=== PATIENT | male | born 1970 | race Caucasian/White ===

== ENCOUNTER 2018-06-28 16:49 | Inpatient (IN) ==
[2018-06-28 17:55] LABS: EOS# 0.03 X1000 (0.0-0.7); EOS% 0.5 % (0.0-10.0); HEMATOCRIT 43.2 % (42.0-52.0); HEMOGLOBIN 14.6 g/dL (14.0-18.0); IMM GRAN# 0.03 X1000 (0.0-0.04); IMM GRAN% 0.5 % (0.0-0.5); LYMPH# 0.96 X1000 (1.2-3.4); LYMPH% 16.6 % (20.5-51.1); MCH 31.9 PG (27-31); MCHC 33.8 g/dL (33-37); MCV 94.5 FL (81-99); MONO% 10.4 % (1.7-9.3); MPV 10.6 FL (7.4-10.4); NEUT# 4.16 X1000 (1.4-6.5); PLT 106 X1000 (130-400); RBC 4.57 XMIL (4.7-6.1); RDW 18.2 % (11.5-14.5); WBC 5.78 X1000 (4.8-10.8)
--- NOTE | 2018-06-28 17:57 | Diag Imaging Result Doc PS360 ---
EXAM: CHEST-PORTABLE - 06/28/2018 HISTORY: chf TECHNIQUE: Portable chest COMPARISON: 12/05/2017 FINDINGS: Heart size appears mildly enlarged. There is mild prominence of central vascular markings. There is no consolidation, pleural effusion, or pneumothorax identified. IMPRESSION: Mild cardiomegaly, with possible mild central vascular congestion. Electronically signed by Fran Fulton 06/28/2018 5:55 PM
[2018-06-28 18:00] LABS: INR 1.49; PROTIME 19.1 Seconds (11.0-16.0); PTT 31.4 Seconds (22.3-41.8)
[2018-06-28 18:07] LABS: ESTIMATED GFR > 60
[2018-06-28 18:08] LABS: AGAP 11; ALB/GLOB RATIO 1.8; ALBUMIN 3.5 g/dL (3.5-5.0); ALKALINE PHOSPHATASE 278 U/L (32-122); BUN 68 mg/dL (8-22); CALCIUM 7.9 mg/dL (8.8-10.2); CHLORIDE 99 mmol/L (98-107); COSMO 286; CREATININE 1.2 mg/dL (0.7-1.2); GLUCOSE 188 mg/dL (70-104); GOT 163 U/L (10-34); GPT 335 U/L (10-44); POTASSIUM 5.8 mmol/L (3.5-5.1); SODIUM 130 mmol/L (136-145); TCO2 20 mmol/L (25-35); TOTAL BILIRUBIN 1.96 mg/dL (0.20-1.00); TOTAL PROTEIN 5.5 g/dL (6.3-8.3)
[2018-06-28 18:09] LABS: ACETONE SERUM NEGATIVE (NEGATIVE)
[2018-06-28] MEDS ORDERED: HEPARIN IV ONE (18:46)
[2018-06-28] MEDS ORDERED: LANOXIN IV ONE (18:48)
[2018-06-28] MEDS ORDERED: HEPARIN 25,000 UNITS/D5W 25,000 UNIT/250 ML IV.SOLN IV SCH (19:00)
[2018-06-28] MEDS ORDERED: ZOFRAN IV PRN (21:28)
[2018-06-28] MEDS ORDERED: CARDIZEM IV ONE (21:32)
[2018-06-28] MEDS ORDERED: KAYEXALATE PO ONE (21:41)
[2018-06-28 22:05] LABS: HEMOGLOBIN A1C 6.8 % (4.8-6.0)
[2018-06-28] MEDS: CARDIZEM 125 MG in NS 100 ML IV SCH (22:11)
--- NOTE | 2018-06-28 22:23 | HISTORY AND PHYSICAL ---
PRIMARY ONCOLOGIST: Hugo Riggs MD CHIEF COMPLAINT: Possible left ventricle thrombosis. HISTORY OF PRESENT ILLNESS: This is a 48-year-old male with history of leukemia, unknown what type of leukemia he has, currently under chemotherapy, and also diabetes. The patient was seen this morning at [facility] by Dr. Riggs. He had a CAT scan yesterday done and the report apparently said that he may have a left ventricle thrombosis. Clinically the patient reports that during the last couple weeks he was feeling more tired with some chest pressure, but not truly chest pain. No fever or chills. The patient reports no palpitations as well. Here in the ER he has been started on heparin drip. Also, he was noted to be in atrial fibrillation with RVR, so digoxin has been provided to him. Upon my examination, I did not have any report from the CAT scan that he had 2 days ago. We are going to admit him for further evaluation and treatment. PAST MEDICAL HISTORY: 1. Leukemia. The patient is under the care of Dr. Riggs and receiving active chemotherapy. 2. Diabetes mellitus type 2. PAST SURGICAL HISTORY: None. ALLERGIES: None. SOCIAL HISTORY: He denies drinking alcohol. He smokes tobacco, few cigarettes per day occasionally, and he denies any illicit drugs. FAMILY HISTORY: Positive for alcohol consumption and also lung cancer in brother. REVIEW OF SYSTEMS: Eleven systems were reviewed and all symptoms are related to H and P. PHYSICAL EXAMINATION: VITAL SIGNS: Temperature 98.2 degrees, heart rate 129, respiratory rate 24, blood pressure 108/82, O2 saturation 95% on room air. GENERAL: This is a chronically ill-appearing and disheveled 48-year-old male, lying in bed in no acute distress. HEENT: Head is normocephalic and atraumatic. Pupils equal, round and reactive to light and accommodation. Mucous membranes moist. NECK: No JVD noted. No carotid bruits. No lymphadenopathy. No thyromegaly. CARDIOVASCULAR: S1, S2 heard. Irregularly irregular and tachycardic. No gallops or rubs noted. RESPIRATORY: Clear bilaterally to auscultation. Decreased breath sounds globally. The patient is not using any accessory muscles or having work of breathing. ABDOMEN: Soft, nontender to palpation. Bowel sounds present. No organomegaly. EXTREMITIES: No clubbing, cyanosis or edema. Peripheral pulses present in both legs. NEUROLOGICAL: The patient is alert and oriented x3. Moves all 4 extremities. LABORATORY DATA: White cell count 5.78, hemoglobin 14.6, hematocrit 43.2, platelets 106,000. INR 1.49, PT 19.1, PTT 31.4. Sodium 130, potassium 5.8, creatinine 1.2, glucose 188. Magnesium 3.0. Total bilirubin 1.96, AST 163, ALT 335. ProBNP 11,767. Total protein 5.5. ASSESSMENT: 1. Possible left ventricle thrombus. 2. Atrial fibrillation with rapid ventricular rate. 3. Hyperkalemia. 4. Acute leukemia, under treatment. 5. Diabetes mellitus type 2. PLAN: 1. Left ventricle thrombus. The patient has been started in the ER with heparin drip. We are going to continue with the same management. We have seen that platelets are low. I am not quite sure how they are going to be with heparin. If that continues to drop, we may need to start Arixtra. We will monitor CBC daily. We will monitor for any signs of bleeding. Will order echocardiogram to confirm thrombus. 2. Atrial fibrillation with rapid ventricular response. I think this could be secondary to this left ventricle clot. We are going to check an echocardiogram tomorrow. We are going to start this patient on Cardizem drip. We will monitor this patient closely in the [facility]. We are going to check troponins to check any heart strain. 3. Diabetes mellitus type 2. We will check hemoglobin A1c. We will place this patient on sliding scale insulin, Humalog and we will do Accu-Chek before meals and also at bedtime. 4. Hyperkalemia we are going to provide one dose of Kayexalate and check BMP tomorrow. 5. Transaminitis. I do not know if that is another reaction from chemotherapy. The patient denies any alcohol consumption. We are going to check a hepatitis panel and we will monitor hepatic function panel daily. Further recommendations to follow according to the clinical situation of the patient. cc: Terry Hargrove MD [facility]
[2018-06-28 22:57] LABS: URINE SOURCE CLEAN CATCH
[2018-06-28] MEDS ORDERED: TYLENOL PO PRN (23:08)
[2018-06-28 23:23] LABS: BILIRUBIN URINE NEGATIVE (NEGATIVE); BLOOD URINE NEGATIVE (NEGATIVE); COLOR YELLOW; GLUCOSE URINE NEGATIVE (NEGATIVE); KETONE URINE NEGATIVE (NEGATIVE); LEUKOCYTES URINE NEGATIVE (NEGATIVE); NITRITE URINE NEGATIVE (NEGATIVE); PROTEIN URINE NEGATIVE (NEGATIVE); SP GRAVITY URINE 1.018; TURBIDITY URINE CLEAR (CLEAR); UR EPITHELIAL CELLS <10 /HPF (<10); URINE BACTERIA NEGATIVE /HPF; URINE RBC <10 /HPF (<10); URINE WBC <10 /HPF (<10); UROBILINOGEN URINE 2 mg/dL (NORMAL)
[2018-06-28] MEDS: NS 1,000 ML IV SCH (23:43)
[2018-06-29] MEDS: NS 1,000 ML IV SCH (00:28)
[2018-06-29] MEDS ORDERED: HEPARIN 25,000 UNITS/D5W 25,000 UNIT/250 ML IV.SOLN IV SCH ×2 (02:41→10:41)
[2018-06-29 05:51] LABS: BASO# 0.01 X1000 (0.0-0.2); BASO% 0.1 % (0.0-0.8); EOS# 0.04 X1000 (0.0-0.7); EOS% 0.6 % (0.0-10.0); HEMOGLOBIN 15.1 g/dL (14.0-18.0); IMM GRAN# 0.02 X1000 (0.0-0.04); IMM GRAN% 0.3 % (0.0-0.5); LYMPH# 0.99 X1000 (1.2-3.4); LYMPH% 14.8 % (20.5-51.1); MCHC 33.6 g/dL (33-37); MCV 95.3 FL (81-99); MONO# 0.79 X1000 (0.11-0.59); MONO% 11.8 % (1.7-9.3); MPV 10.4 FL (7.4-10.4); NEUT# 4.85 X1000 (1.4-6.5); NEUT% 72.4 % (42.2-75.2); PLT 106 X1000 (130-400); RBC 4.72 XMIL (4.7-6.1); RDW 18.6 % (11.5-14.5)
[2018-06-29 06:29] LABS: ALB/GLOB RATIO 1.6; ALBUMIN 3.5 g/dL (3.5-5.0); DIRECT BILIRUBIN 1.2 mg/dL (0.00-0.20); TOTAL BILIRUBIN 2.02 mg/dL (0.20-1.00); TOTAL PROTEIN 5.7 g/dL (6.3-8.3)
[2018-06-29 06:30] LABS: ESTIMATED GFR > 60
[2018-06-29] MEDS: HUMALOG SUBQ SCH ×4 (06:41→21:06)
[2018-06-29] MEDS: PRILOSEC PO SCH (06:42)
[2018-06-29 07:04] LABS: AGAP 11; BUN 52 mg/dL (8-22); CALCIUM 8.1 mg/dL (8.8-10.2); CHLORIDE 97 mmol/L (98-107); COSMO 279; CREATININE 1.1 mg/dL (0.7-1.2); GLUCOSE 131 mg/dL (70-104); POTASSIUM 5.1 mmol/L (3.5-5.1); SODIUM 131 mmol/L (136-145); TCO2 23 mmol/L (25-35)
[2018-06-29 07:10] LABS: ALLEN TEST YES; BE -1.5 mmoll (-3.0-3.0); BLOOD TYPE ARTERIAL; HCO3-(ACT) 23.7 mmoll (20.0-26.0); METHB 1.1 % (0.0-1.5); O2(CT) 20.4 mL/dL (15.0-23.0); O2HB 95.1 % (95.0-99.0); PCO2(98.6) 32 mmHg (35-45); PO2(98.6) 105 mmHg (60-100); SAMPLE BLOOD; SAO2 97.7 % (95.0-100.0); THB 15.2 g/dL (11.5-17.4); pH(98.6) 7.44 (7.35-7.45)
[2018-06-29 07:11] LABS: MODALITY CANNULA
--- NOTE | 2018-06-29 07:24 | EKG Report ---
Test Performed on : 06/29/2018 06:31:56 AM Test Reason : a fib rvr Blood Pressure : / mmHG Vent. Rate : 101 BPM Atrial Rate : 264 BPM P-R Int : 000 ms QRS Dur : 092 ms QT Int : 364 ms P-R-T Axes : 000 257 047 degrees QTc Int : 471 ms Atrial flutter. with variable AV block. with premature ventricular or aberrantly conducted complexes. Right superior axis deviation Pulmonary disease pattern Inferior infarct (cited on or before 28-JUN-2018) Abnormal ECG When compared with ECG of 28-JUN-2018 16:55, (Unconfirmed) Significant changes have occurred Confirmed by Anibal HERNANDEZ, Nahum ([id number]) on 06/29/2018 11:44:18 AM
--- NOTE | 2018-06-29 07:27 | EKG Report ---
Test Performed on : 06/28/2018 4:55:55 PM Test Reason : chf Blood Pressure : / mmHG Vent. Rate : 129 BPM Atrial Rate : 258 BPM P-R Int : 000 ms QRS Dur : 078 ms QT Int : 284 ms P-R-T Axes : 243 241 069 degrees QTc Int : 416 ms Atrial flutter. with 2:1 AV conduction. Low voltage QRS Inferior infarct , age undetermined Possible Anterolateral infarct , age undetermined Abnormal ECG When compared with ECG of 05-DEC-2017 07:03, Significant changes have occurred Unconfirmed Result
[2018-06-29] MEDS: CARDIZEM 125 MG in NS 100 ML IV SCH (07:35)
--- NOTE | 2018-06-29 07:48 | Diag Imaging Result Doc PS360 ---
CHEST-PORTABLE - 06/29/2018 INDICATION: Dyspnea COMPARISON: 06/28/2018 FINDINGS: Stable cardiomegaly. Pulmonary vascularity is top normal. There is a new round infiltrate at the right lung apex. No pneumothorax or significant pleural effusion. IMPRESSION: New focal infiltrate at the right lung apex compatible with pneumonia. Electronically signed by Nemesio Mccarty 06/29/2018 7:45 AM
[2018-06-29] MEDS ORDERED: LASIX IV ONE (10:22)
--- NOTE | 2018-06-29 11:22 | CARDIOLOGY CONSULTATION ---
DATE: 06/29/2018 REASON FOR CONSULTATION: Cardiology was consulted for LV thrombus atrial fibrillation. HISTORY OF PRESENT ILLNESS: Patient is disoriented; history was not forthcoming. Patient history was obtained from the chart, as well as talking to his father. The patient is a 48-year-old, gentleman with history of leukemia, who underwent a CT scan with Dr. Riggs at the [facility] which revealed LV thrombus. Patient was subsequently admitted, noted to be in atrial fibrillation and started on a Cardizem drip. The patient had seen a crown blocker last year in [place] at [facility]. The patient's father states that he has stopped taking all his medications for the last few months. As far as the cardiac history is concerned, he is not sure as to what problems he has had. REVIEW OF SYSTEMS: Could not be obtained from the patient as he is disoriented. PAST MEDICAL HISTORY: 1. Has cardiac problems of unknown etiology. He sees crown blocker at [place], and we will request records of the same. 2. Diabetes. 3. Leukemia. SOCIAL HISTORY: He denies alcohol abuse, smokes. No illicit drugs. PHYSICAL EXAMINATION: Cardiovascular system: Blood pressure was 110/80. First and second heart sounds were heard. There was a soft systolic murmur. Respiratory system: Scattered crepitations. Abdomen: Abdomen was soft, nontender. There was no guarding or rigidity. Bowel sounds were heard. Abdomen was distended. Central nervous system: Alert and oriented. He was awake, moving all 4 extremities. Detailed central nervous system examination not performed. LABORATORY EXAMINATION: WBC is 5.78, hemoglobin 14.2, hematocrit 43, platelet count of 106. INR 1.49. Sodium 130, potassium 5.8, creatinine 1.2. Mag 3.0. Abnormal LFTs with bilirubin of 1.96, ALT 335, proBNP 11,767, AST 163, total protein 5.5. ASSESSMENT: Mr. Sudeep Valverde is a 48-year-old, gentleman, who has known heart disease, exact etiology not known. He had stopped taking his medications for the last few months. He was admitted from Dr. Riggs's office as a computed tomography scan revealed left ventricular thrombus. PLAN: 1. Given his atrial fibrillation, he was started on a Cardizem drip. However, he has severe LV dysfunction with LV thrombus. Please see detailed echocardiogram report. Given this, we will discontinue the Cardizem drip. We will put him on digoxin 0.25 mg daily, in addition to Coreg and will start him on 6.25 mg twice daily. 2. He is on IV heparin. Will transition him to Eliquis 5 mg twice daily. He has altered mental status. We will also get a CT scan of his head to make sure there is no intracranial pathology. 3. We will get a urine tox screen as well. 4. Given his LV dysfunction, we will start him on ROSAURA inhibitors from tomorrow. He has abnormal liver function tests. I suspect that is from heart failure. He has been started on IV Lasix. We would recommend continuing that. 5. We will await records from [place] and advise accordingly. Thank you for the consult. We will follow hospital course. cc: Rodrigo Ugarte MD
[2018-06-29 11:29] LABS: UR AMPHETAMINES QUAL NONE DETECTED (NONE DETECT); UR BARBITUATES QUAL NONE DETECTED (NONE DETECT); UR BENZODIAZEPIN QUAL NONE DETECTED (NONE DETECT); UR CANNABINOIDS QUAL PRESUMPTIVE POSITIVE (NONE DETECT); UR COCAINE QUAL NONE DETECTED (NONE DETECT); UR OPIATES QUAL PRESUMPTIVE POSITIVE (NONE DETECT); UR PCP QUAL NONE DETECTED (NONE DETECT)
[2018-06-29 11:30] LABS: UR METHADONE QUAL NONE DETECTED (NONE DETECT); UR OXYCODONE QUAL NONE DETECTED (NONE DETECT)
[2018-06-29] MEDS: LANOXIN PO SCH (11:47)
[2018-06-29] MEDS: ELIQUIS PO SCH ×2 (11:47→21:06)
[2018-06-29] MEDS: COREG PO SCH ×2 (11:47→21:06)
--- NOTE | 2018-06-29 11:47 | Diag Imaging Result Doc PS360 ---
EXAM: CT HEAD W/O CONTRAST HISTORY: AMS, LV thrombus TECHNIQUE: CT head without contrast COMPARISON: None. FINDINGS: No parenchymal hemorrhage. No epidural or subdural hematoma. No subarachnoid hemorrhage. No mass identified on this noncontrasted exam. No hydrocephalus. No sinus opacification. IMPRESSION: No hemorrhage. Negative brain CT without contrast. This exam was performed using automated exposure control, adjustment of mA or kV according to patient size, and/or use of iterative reconstruction technique. Electronically signed by Vickey Bentley 06/29/2018 11:44 AM
--- NOTE | 2018-06-29 11:51 | PROGRESS NOTE ---
DATE: 06/29/2018 SUBJECTIVE: This morning Mr. Valverde was a little agitated and extremely noncooperative with the nursing staff and even with the echocardiogram aviation technician when I went to check on him this morning. He said he wants to use the restroom and has not been given the chance to use it. He just had multiple complaints. OBJECTIVE: Vital Signs: Stable. Blood pressure is 108/93, pulse of 62, respiration is 18, temperature is 98.4 degrees. General: Mr. Sudeep Valverde is a 48-year-old morbidly obese male. He has a BMI of over 37. He was actually sitting up at the edge of the bed. He did not seem to be in any cardiopulmonary distress. HEENT: Mucosa is pink and moist. Anicteric. Acyanotic. Neck: Supple. Positive JVD. Chest: Air entry was bilaterally reduced. Some crackles in the posterior lung whitman. Abdomen: Globally distended. Bowel sounds present. Extremities: About 2+ pedal edema. TRACK MOVING MACHINE OPERATOR: The patient was awake, alert, slightly confused, but was able to follow basic commands. LABORATORY DATA: CBC is reviewed, it is completely normal. ABG is reviewed and unremarkable. Chemistry: Sodium is 131, potassium is 5.1, chloride 97, total bilirubin is 2.02, AST is 149, ALT is 310. ASSESSMENT: 1. Possible left ventricular thrombus. The patient is currently on heparin drip. This is something that we have been told is from a workup from her oncology office, so we will be waiting on the report especially of the CT scan that was done and then go from there. 2. Atrial fibrillation with rapid ventricular response on presentation. The patient continues to be on a Cardizem drip. 3. Fluid overload likely due to congestive heart failure with preserved ejection fraction or mainly a right heart failure. 4. Morbid obesity with suspected sleep apnea. The patient will need to be evaluated for this at a later date on an outpatient basis. 5. Transaminitis presumably from congestive hepatopathy. However, we will do a viral hepatitis panel to rule out any cause and we will also do an ultrasound of the abdomen at a later date. 6. Known case of acute leukemia. The patient is under treatment with Dr. Cleveland. 7. Diabetes mellitus. A1c is 6.8. We will continue with insulin regimen. 8. AMS, global encephalopathy. UDS positive from opioids and cannabis. Could be withdrawing from some psychotropic medications. Use PRN Ativan and scheduled Librium. PLAN: So in general Mr. Valverde is currently doing an echocardiogram, we will wait for the results. We are also pending records from his oncology office and continue with his current management. I have discontinue the IV fluids since the patient already seems to be fluid overloaded, and I have started him on Lasix. We are going to keep an eye on his renal function. cc: Boni Caldera MD [facility]
[2018-06-29] MEDS ORDERED: ATIVAN IV PRN (14:29)
[2018-06-29] MEDS ORDERED: SALINE LOCK IV FLUID XX ONE (14:31)
[2018-06-29] MEDS ORDERED: M.V.I.-12 10 ML, FOLIC ACID 1 MG, MAGNESIUM SULFATE 1 GM, THIAMINE 100 MG in NS 1,000 ML IV ONE (14:31)
[2018-06-29] MEDS: LIBRIUM PO SCH ×2 (14:59→21:05)
--- NOTE | 2018-06-29 15:28 | HISTORY AND PHYSICAL ---
ADDENDUM: Records were obtained from [facility] where he was admitted in 2018 in November for the following. #1. Acute leukemia. #2 at that time he was noted to have atrial fibrillation. Cardiology was consulted. #3. Ejection fraction at that time was 50% with mild mitral and tricuspid regurgitation. #4. The diagnosis of pericarditis was also contemplated. His LV dysfunction is new as per the echocardiogram done today. In addition he has LV thrombus. As far as atrial fibrillation is concerned, do not have previous interim electrocardiograms to compare with to say whether this was paroxysmal or ongoing atrial fibrillation. cc: Rodrigo Ugarte MD
--- NOTE | 2018-06-29 17:23 | ECHO REPORT ---
ORDER DATE: 06/28/2018 STUDY: 2D echocardiogram. The study was difficult and Optison was added. INDICATION: Suspected cardiac thrombus. Patient with cardiomyopathy. M-MODE MEASUREMENTS: Left ventricle end diastole: 5.5 cm. Left ventricle end systole: 5.2 cm. Posterior wall: 0.9 cm. Interventricular septum: 0.9 cm. Left atrium: 5.2 cm. Aortic diameter: 3.2 cm. SUMMARY OF 2-DIMENSIONAL IMAGING: The study is difficult. The patient is tachycardic. 1. The left ventricular chamber is significantly dilated and so is the right-sided chamber. The left ventricular systolic function appears to be globally impaired in a severe degree. Ejection fraction is visually estimated at 15% to 20%. There is an apical thrombus about 1.2 x 2.3 cm located in the apex of the left ventricle. It is mobile. 2. The right ventricle is also dilated and hypokinetic. 3. The tricuspid valve shows moderately severe degree of regurgitation. 4. The pulmonary pressure is estimated at 42 to 47 mmHg. 5. The pulmonic valve appears to be unremarkable. 6. The aortic valve appears to be normal. Color flow mapping unremarkable. 7. The mitral valve shows moderate degree of regurgitation. 8. The atria appear to be dilated. 9. There is a small pericardial effusion. 10.Diastolic function cannot be evaluated in this case. The patient probably is in atrial fibrillation. The study is consistent with a dilated cardiomyopathy. Clinical correlation recommended. cc: MD Terry Schultz MD
[2018-06-29] MEDS ORDERED: DUONEB (A & A) INH PRN (18:24)
[2018-06-29] MEDS: LASIX IV SCH (21:06)
[2018-06-30] MEDS: LIBRIUM PO SCH ×4 (02:07→20:21)
[2018-06-30] MEDS: CARDIZEM PO SCH ×4 (02:56→20:21)
[2018-06-30] MEDS: PRILOSEC PO SCH (06:17)
[2018-06-30 06:52] LABS: ALB/GLOB RATIO 1.4; DIRECT BILIRUBIN 1.2 mg/dL (0.00-0.20); TOTAL BILIRUBIN 1.9 mg/dL (0.20-1.00); TOTAL PROTEIN 5.1 g/dL (6.3-8.3)
[2018-06-30 06:53] LABS: AGAP 10; BUN 35 mg/dL (8-22); CALCIUM 8.2 mg/dL (8.8-10.2); CHLORIDE 101 mmol/L (98-107); COSMO 284; ESTIMATED GFR > 60; GLUCOSE 104 mg/dL (70-104); POTASSIUM 4.1 mmol/L (3.5-5.1); SODIUM 138 mmol/L (136-145); TCO2 27 mmol/L (25-35)
[2018-06-30] MEDS: HUMALOG SUBQ SCH ×4 (06:56→22:08)
[2018-06-30 07:01] LABS: EOS# 0.03 X1000 (0.0-0.7); EOS% 0.6 % (0.0-10.0); HEMATOCRIT 41.6 % (42.0-52.0); HEMOGLOBIN 13.7 g/dL (14.0-18.0); LYMPH# 0.61 X1000 (1.2-3.4); LYMPH% 12.9 % (20.5-51.1); MCH 31.9 PG (27-31); MCHC 32.9 g/dL (33-37); MCV 96.7 FL (81-99); MONO# 0.56 X1000 (0.11-0.59); MONO% 11.8 % (1.7-9.3); MPV 9.8 FL (7.4-10.4); NEUT# 3.54 X1000 (1.4-6.5); NEUT% 74.7 % (42.2-75.2); PLT 98 X1000 (130-400); RDW 18.7 % (11.5-14.5); WBC 4.74 X1000 (4.8-10.8)
[2018-06-30] MEDS: COZAAR PO SCH (08:25)
[2018-06-30] MEDS: ELIQUIS PO SCH ×2 (08:25→20:21)
[2018-06-30] MEDS: LANOXIN PO SCH (08:25)
[2018-06-30] MEDS: LASIX IV SCH ×2 (08:25→20:21)
[2018-06-30] MEDS: COREG PO SCH ×2 (08:25→20:21)
[2018-06-30] MEDS: LOPRESSOR IV PRN (08:43)
--- NOTE | 2018-06-30 14:26 | PROGRESS NOTE ---
DATE: 06/30/2018 SUBJECTIVE: This morning Mr. Valverde is a lot more cooperative, more awake. The father was at the bedside at the time of the encounter. OBJECTIVE: Vitals: Blood pressure is 91/57, pulse is 64, respirations 20, temperature 97.6 degrees. I understand last night Mr. Valverde went into a-flutter with multiple AV conduction blocks. At some point, he also had about 2 rounds of ventricular tachycardia. Cardiology was notified. General Exam: This morning Mr. Valverde is in bed. He is not in any distress. HEENT: Mucosa is pink and moist. Anicteric. Acyanotic. Neck: Supple. There is positive JVD. Chest: Air entry is bilaterally reduced. There is end-inspiratory crackles in the posterior lung whitman. No rhonchi. Cardiovascular: Regular rate and rhythm. Did not appreciate any murmurs. Abdomen: Soft, is distended, but nontender. Bowel sounds present. Extremities: About 1+ pedal edema. INTAKE ASSESSOR: Patient is awake, but easily falls back to sleep. He follows basic commands. Skin: Multiple scratches on the upper chest and the abdomen. LABORATORY DATA: WBC is 4.74, hemoglobin is 13.7, platelet count of 98. Chemistry is also reviewed and it is completely unremarkable. BUN is down to 35. Liver enzymes are also trending down. DIAGNOSTIC STUDIES: 1. A CT scan of the head yesterday was negative. 2. A chest x-ray yesterday shows new focal infiltrates at the right apex compatible with pneumonia. 3. An echocardiogram which was done yesterday shows an ejection fraction of 15 to 20 percent. There is an apical thrombus about 1.2 x 2.3, located in the apex of the left ventricle. The right ventricle is also dilated and hypokinetic. CURRENT MEDICATIONS: Have all been reviewed. ASSESSMENT: 1. Fluid overload secondary to congestive heart failure. Will continue with the diuretic management. 2. Severe dilated cardiomyopathy with ejection fraction of 15% to 20%. The etiology is unknown. At this point, I think ischemic workup will need to be done once patient is euvolemic. We will wait on Cardiology's further recommendations on that. 3. Left ventricle apex thrombus. Patient is currently on anticoagulants. 4. Atrial fibrillation with rapid ventricular response. The patient also went into atrial flutter with variable blocks. He also had 2 runs of ventricular tachycardia yesterday. The patient is currently on beta ramona and digoxin, as well as Cardizem. The rate is a lot better controlled this morning. 5. Transaminitis secondary to congestive hepatopathy, improving. 6. History of acute leukemia. The patient has been treated in [facility]. He understands he is in remission. He follows up with Dr. Riggs. 7. Diabetes mellitus, controlled. 8. Altered mental status, likely recreational drug related. The patient's mentation is a lot better this morning. PLAN: So, in general, Mr. Valverde seems to be slightly better this morning. We are going to continue with all the medications. I have started him on multivitamins and thiamine replacement. We will continue with the diuretic therapy, and wait for further recommendations from Cardiology. We will repeat his chest x-ray, EKG and labs for in the morning. cc: Boni Caldera MD [facility]
[2018-06-30] MEDS: THERA M PLUS PO SCH (15:31)
[2018-06-30] MEDS: VITAMIN B-1 PO SCH (15:31)
--- NOTE | 2018-06-30 18:32 | CARDIOLOGY PROGRESS NOTE ---
DATE: 06/30/2018 SUBJECTIVE: Mr. Valverde is attempting to answer all questions. He seems oriented but is picking and fidgeting at all of his medical devices. OBJECTIVE: He is afebrile. His heart rate currently is 64. Blood pressure 91/57. Generally, he is in no acute distress. Cardiovascular: He sounds to be in a regular rate and rhythm. He has no murmurs. No S3. He has no lower extremity edema. His chest is clear bilaterally. No increased work of breathing. His abdomen is soft and nontender. DIAGNOSTIC DATA: His echocardiogram was reviewed, with an EF of 15% to 20%. Noted to have an apical thrombus visualized in the left ventricle. LABORATORY DATA: His laboratory data currently shows a white count of 4.7, his hematocrit is 41, his platelet count is 198,000. His sodium is 138, potassium 4.1, his BUN is 35, creatinine is 1. His proBNP was 11,000 on 06/28; no check since then. His albumin is 3. ASSESSMENT: Mr. Valverde is a 48-year-old gentleman who presented with left ventricular thrombus, atrial fibrillation and a new reduction in left ventricular systolic function. PLAN: Dr. Ugarte has initiated aggressive medications with apixaban, carvedilol, digoxin and losartan. He seems to be doing well at this point. He is on anticoagulation. The patient could possibly be going through early mild withdrawals and currently is on Librium. We will recheck his laboratories in the morning including his proBNP. cc: Andrea Patel MD
[2018-07-01] MEDS: LIBRIUM PO SCH ×4 (03:08→20:35)
[2018-07-01] MEDS: CARDIZEM PO SCH ×4 (03:08→20:35)
[2018-07-01] MEDS: PRILOSEC PO SCH ×2 (05:21→06:12)
[2018-07-01 06:02] LABS: BASO# 0.01 X1000 (0.0-0.2); BASO% 0.2 % (0.0-0.8); EOS# 0.03 X1000 (0.0-0.7); EOS% 0.5 % (0.0-10.0); HEMATOCRIT 42.3 % (42.0-52.0); HEMOGLOBIN 13.9 g/dL (14.0-18.0); LYMPH# 0.75 X1000 (1.2-3.4); LYMPH% 13.6 % (20.5-51.1); MCHC 32.9 g/dL (33-37); MCV 97.2 FL (81-99); MONO# 0.65 X1000 (0.11-0.59); MONO% 11.8 % (1.7-9.3); MPV 9.6 FL (7.4-10.4); NEUT# 4.06 X1000 (1.4-6.5); NEUT% 73.9 % (42.2-75.2); PLT 110 X1000 (130-400); RBC 4.35 XMIL (4.7-6.1); RDW 19.2 % (11.5-14.5)
[2018-07-01] MEDS: HUMALOG SUBQ SCH ×4 (06:12→20:36)
[2018-07-01 06:35] LABS: AGAP 8; ALB/GLOB RATIO 1.3; ALKALINE PHOSPHATASE 182 U/L (32-122); BUN 26 mg/dL (8-22); CALCIUM 8.4 mg/dL (8.8-10.2); CHLORIDE 106 mmol/L (98-107); COSMO 289; CREATININE 1.1 mg/dL (0.7-1.2); ESTIMATED GFR > 60; GLUCOSE 114 mg/dL (70-104); GOT 81 U/L (10-34); GPT 174 U/L (10-44); POTASSIUM 4.1 mmol/L (3.5-5.1); SODIUM 142 mmol/L (136-145); TCO2 28 mmol/L (25-35); TOTAL BILIRUBIN 1.21 mg/dL (0.20-1.00); TOTAL PROTEIN 5.4 g/dL (6.3-8.3)
--- NOTE | 2018-07-01 08:14 | Diag Imaging Result Doc PS360 ---
CHEST-PORTABLE - 07/01/2018 INDICATION: dyspnea COMPARISON: 06/29/2018 FINDINGS: Stable severe cardiomegaly. Pulmonary vascularity is normal. No infiltrates or edema. No pneumothorax or pleural effusion. IMPRESSION: Cardiomegaly. Electronically signed by Nemesio Mccarty 07/01/2018 8:11 AM
[2018-07-01] MEDS: COREG PO SCH ×2 (08:52→20:35)
[2018-07-01] MEDS: LASIX IV SCH ×2 (08:52→20:35)
[2018-07-01] MEDS: COZAAR PO SCH (08:52)
[2018-07-01] MEDS: VITAMIN B-1 PO SCH (08:52)
[2018-07-01] MEDS: THERA M PLUS PO SCH (08:52)
[2018-07-01] MEDS: ELIQUIS PO SCH ×2 (08:52→20:35)
[2018-07-01] MEDS: LANOXIN PO SCH (08:52)
[2018-07-01 12:09] LABS: HEPATITIS PROFILE ACUTE SEE COMMENTS
[2018-07-01] MEDS: LOPRESSOR IV PRN (12:41)
--- NOTE | 2018-07-01 12:42 | CARDIOLOGY PROGRESS NOTE ---
DATE: 07/01/2018 SUBJECTIVE: Mr. Valverde is reasonably calm in the room. He seems alert, oriented. Discussion with the nurse seems to show that he continues to be quite fidgety and they are replacing his telemetry leads. OBJECTIVE: Vitals: Patient is afebrile. His heart rate currently during my examination was in the 110s to 130s, his blood pressure 99/66. Generally: No acute distress. Cardiovascular: He sounds to be in an irregularly irregular rhythm. Evaluation of his telemetry shows what appears to be atrial flutter. Chest: Exam sounds clear bilaterally. No increased work of breathing. Abdomen: Soft, nontender. Extremities: He has no lower extremity edema. He has warm and well perfused extremities. INPUT AND OUTPUT: Difficult to track due to the number of incontinent and continent voids not measured. PERTINENT DATA: His chest x-ray shows cardiomegaly with normal pulmonary vasculature. His white count is 5.5, hematocrit is 42, platelet count is 110,000. Sodium is 142, potassium 4.1, BUN 26, creatinine is 1.1, proBNP is down to 9278. ASSESSMENT: Mr. Valverde is a 48-year-old gentleman with systolic heart failure, left ventricular thrombus and atrial flutter. PLAN: The atrial flutter rate may be driven by his low level withdrawal right now. For now, we will continue him on his Coreg and digoxin. We could potentially add in some amiodarone if his rate becomes more of an issue, but right now we will continue with the p.r.n. metoprolol. He is on oral Eliquis as well for appropriate anticoagulation. He seems to be diuresing, although our input and output are somewhat compromised due to his lack of cooperation. His proBNP is reducing. We will recheck laboratories in the morning. cc: Andrea Patel MD
--- NOTE | 2018-07-01 14:11 | PROGRESS NOTE ---
DATE: 07/01/2018 SUBJECTIVE: This morning, Mr. Valverde refers to be doing fairly okay. I understand that his heart rate has been up and down, and cardiology has been notified. OBJECTIVE: Current Vital Signs: Blood pressure is 100/81, pulse is 130, respirations are 20, temperature is 97.8 degrees, the patient is saturating 95% on room air. General Examination: Mr. Valverde is a 48-year-old, gentleman. He is in bed, in no distress. HEENT: Mucosa is pink and moist. Anicteric. Acyanotic. Neck: Supple. There is still positive JVD. Chest: Air entry is bilaterally reduced. There are crackles in the posterior lung whitman bilaterally. Cardiovascular: Irregularly irregular, it tachycardic. No murmurs, no rubs, no gallops. GI: Abdomen is soft and distended but nontender. Extremities: About 1+ pedal edema. There is also edema on the lateral aspect of the abdominal wall. OBIEE REPORT DEVELOPER: The patient is more awake and alert this morning. Skin: Multiple scratches on the upper chest and abdomen. Laboratory Data: WBC is 5.50, hemoglobin is 13.9, platelet count of 110,000. Chemistry is also reviewed and unremarkable. The liver enzymes continue to go down. A chest x-ray this morning continues to show stable severe cardiomegaly. Pulmonary vascularity is normal. No infiltrates. Medications: Have also been reviewed. No changes. ASSESSMENT: 1. Fluid overload secondary to systolic heart failure. We are going to continue with the diuretic and other management as dictated by cardiology. 2. Severe dilated cardiomyopathy with ejection fraction of 15% to 20%. Etiology is unknown. We will be pending further cardiology recommendations on management and diagnostic workup. 3. Left ventricle apex thrombus. The patient is on anticoagulants. 4. Atrial fibrillation/atrial flutter with rapid ventricular response. We will continue with digoxin and Cardizem. Patient is also getting as needed metoprolol. 5. Transaminitis secondary to congestive hepatopathy, improving. 6. History of acute leukemia. The patient follows up with Dr. Riggs. 7. Diabetes mellitus, controlled. 8. Altered mental status on presentation, likely related to recreational drug use/withdrawal. The patient's toxicology was positive for opioids and cannabis. Mentation is improving. cc: Boni Caldera MD
[2018-07-01] MEDS: NICODERM PATCH TD SCH (15:04)
[2018-07-02] MEDS: LIBRIUM PO SCH ×2 (02:37→08:25)
[2018-07-02] MEDS: CARDIZEM PO SCH ×4 (02:37→20:59)
[2018-07-02 05:46] LABS: AGAP 10; BUN 22 mg/dL (8-22); CALCIUM 8.8 mg/dL (8.8-10.2); CHLORIDE 105 mmol/L (98-107); COSMO 291; CREATININE 1.1 mg/dL (0.7-1.2); ESTIMATED GFR > 60; GLUCOSE 114 mg/dL (70-104); MAGNESIUM 1.7 mg/dL (1.5-2.7); POTASSIUM 3.9 mmol/L (3.5-5.1); SODIUM 144 mmol/L (136-145); TCO2 29 mmol/L (25-35)
[2018-07-02] MEDS: PRILOSEC PO SCH ×2 (05:54→06:05)
[2018-07-02] MEDS: HUMALOG SUBQ SCH ×4 (06:05→21:02)
[2018-07-02] MEDS: COREG PO SCH ×2 (08:24→20:59)
[2018-07-02] MEDS: LASIX IV SCH ×2 (08:24→20:59)
[2018-07-02] MEDS: NICODERM PATCH TD SCH (08:24)
[2018-07-02] MEDS: ELIQUIS PO SCH ×2 (08:24→20:59)
[2018-07-02] MEDS: VITAMIN B-1 PO SCH (08:24)
[2018-07-02] MEDS: COZAAR PO SCH (08:25)
[2018-07-02] MEDS: LANOXIN PO SCH (08:25)
[2018-07-02] MEDS: THERA M PLUS PO SCH (08:25)
[2018-07-02] MEDS ORDERED: LIBRIUM PO PRN (08:46)
[2018-07-02] MEDS: LOPRESSOR IV PRN (10:07)
--- NOTE | 2018-07-02 10:54 | PROGRESS NOTE ---
DATE: 07/02/2018 SUBJECTIVE: This morning, Mr. Valverde refers to be doing fairly okay. Denies any complaints. He was actually wondering if he could be discharged to go and visit his daughter. OBJECTIVE: Vital signs: Blood pressure is 92/62, pulse of 115 and it actually goes up to about 141, respirations 16, temperature 98 degrees, patient was saturating 96% on room air. On general exam, Mr. Valverde is a 48-year-old gentleman. He is in bed in no cardiopulmonary distress. Mucosa is pink and moist. Anicteric. Acyanotic. Neck is supple. There is still positive JVD. Chest: Air entry is bilaterally reduced. There are a few crackles in the posterior lung whitman. Cardiovascular: Irregularly irregular and tachycardic. No murmurs, no rubs, no gallops. Gastrointestinal: Abdomen is soft, distended. There is some edema on the lateral aspect of the abdominal wall. Extremities: About 1+ pedal edema. Central Nervous System: Patient is awake, alert, and oriented. DIAGNOSTIC STUDIES: Chemistry is reviewed is completely normal. No chest x-ray for this morning. INTAKE AND OUTPUT: Intakes and outputs are not very well documented. WEIGHT: The patient current weight is 254. It was 267 on admission, which means he is losing weight through diuretic therapy. ASSESSMENT: 1. Fluid overload secondary to congestive heart failure, ejection fraction of 15% to 20%. Etiology is currently unknown. We presume it could be related to chemotherapy that the patient had for acute leukemia management about 3 months ago; however, other possible etiologies need to be rule out, including coronary artery disease. Cardiology is on board, and we will follow up with their further recommendations. 2. Severe dilated cardiomyopathy with ejection fraction of 15% to 20%. 3. Left ventricle apex thrombus. Patient is on anticoagulation. 4. Atrial fibrillation/atrial flutter with rapid ventricular response. The patient is currently on digoxin and Cardizem. Metoprolol has been added. He continues to be in RVR. I think at some point we might have to start him on amiodarone. We will, however, wait for Cardiology to see him and go from there. 5. Transaminitis secondary to congestive hepatopathy, improving. 6. History of acute leukemia. The patient is currently in remission. Follows up with Dr. Riggs. 7. Diabetes mellitus is controlled. 8. Altered mental status on presentation, presumed to be related to recreational drug use/withdrawal. The patient's urine toxicology was positive for opioids and cannabis. His mentation has significantly improved. In general, Mr. Valverde was electively admitted from Dr. Riggs's office because of left ventricle apex thrombus; however, during the hospital course, he was found to have fluid overload. Echocardiogram has revealed an EF of 15% to 20%. He is currently on multiple medications. His heart rate continues to be high, which Cardiology has used multiple medication to fine-tune this. We are going to continue following up in an attempt to get the heart rate better controlled. Mr. Valverde wants to go home; however, I have explained to him that he is still critically sick and that we need him to be euvolemic, get the heart better control, and follow up for further recommendation with Cardiology with regards to his diagnostic workup as well as his pharmacological management. Disposition is going to depend on the rest of his hospital course. cc: Boni Caldera MD
[2018-07-03] MEDS: CARDIZEM PO SCH ×2 (03:05→09:21)
[2018-07-03 05:25] LABS: BASO# 0.01 X1000 (0.0-0.2); BASO% 0.2 % (0.0-0.8); EOS# 0.09 X1000 (0.0-0.7); EOS% 1.9 % (0.0-10.0); HEMATOCRIT 42.9 % (42.0-52.0); HEMOGLOBIN 13.6 g/dL (14.0-18.0); LYMPH# 0.97 X1000 (1.2-3.4); MCH 31.7 PG (27-31); MCHC 31.7 g/dL (33-37); MONO# 0.42 X1000 (0.11-0.59); MONO% 8.7 % (1.7-9.3); MPV 9.3 FL (7.4-10.4); NEUT# 3.35 X1000 (1.4-6.5); NEUT% 69.2 % (42.2-75.2); PLT 100 X1000 (130-400); RBC 4.29 XMIL (4.7-6.1); RDW 19.3 % (11.5-14.5); WBC 4.84 X1000 (4.8-10.8)
[2018-07-03] MEDS: HUMALOG SUBQ SCH ×3 (05:54→11:21)
[2018-07-03] MEDS: PRILOSEC PO SCH ×2 (05:54→06:30)
[2018-07-03] MEDS: LOPRESSOR IV PRN ×2 (05:54→11:12)
[2018-07-03 05:59] LABS: AGAP 1; ALB/GLOB RATIO 1.2; ALBUMIN 3.1 g/dL (3.5-5.0); ALKALINE PHOSPHATASE 185 U/L (32-122); BUN 24 mg/dL (8-22); CALCIUM 8.8 mg/dL (8.8-10.2); CHLORIDE 105 mmol/L (98-107); COSMO 294; CREATININE 1.1 mg/dL (0.7-1.2); ESTIMATED GFR > 60; GLUCOSE 192 mg/dL (70-104); GOT 39 U/L (10-34); GPT 108 U/L (10-44); POTASSIUM 3.9 mmol/L (3.5-5.1); SODIUM 143 mmol/L (136-145); TCO2 37 mmol/L (25-35); TOTAL BILIRUBIN 0.81 mg/dL (0.20-1.00); TOTAL PROTEIN 5.6 g/dL (6.3-8.3)
--- NOTE | 2018-07-03 06:02 | PROVIDER DOCUMENTATION ---
This chart was entered by Soheila Denny Scribe, acting as scribe for Daquan Chang MD. HPI-Cardiac General <Calderon Mclaughlin - Last Filed: 06/28/18 21:01> - General Source: patient <Daquan Chang - Last Filed: 07/03/18 06:02> - General Chief Complaint: Abnormal Lab[s] Stated Complaint: POSS CLOT IN LEFT VENTRICAL Time Seen by Provider: 06/28/18 18:00 Allergies/Adverse Reactions: Patient Allergies Allergy/AdvReac Type Severity Reaction Status Date / Time No Known Allergies Allergy Verified 12/05/17 06:46 Home Medications: Home Medication List Medication Instructions Recorded Confirmed Last Taken Type NK [No Home Medications] 12/05/17 12/05/17 Unknown History - History of Present Illness-Cardiac Nature of Presenting Problem: 48 yom c/o pt was seen earlier at [facility] by dr. medrano and was referred to er for possible left ventricle clot. pt has hx of acute leukemia, chf and afib. pt denies drug allergies. (Daquan Chang) Review of Systems - Adult - REVIEW OF SYSTEMS - ADULT Constitutional: reports: no symptoms reported. denies: chills, fever, fatique Eyes: reports: no symptoms reported Ears, Nose, Mouth & Throat: reports: no symptoms reported Cardiovascular: reports: see HPI, other (poss blood clot left ventricle). denies: chest pain, edema, irregular heart rate, orthopnea, palpitations Respiratory: reports: no symptoms reported. denies: chronic cough, cough, shortness of breath, wheezing Gastrointestinal: reports: no symptoms reported. denies: abdominal pain, diarrhea, nausea, vomiting Genitourinary: reports: no symptoms reported Musculoskeletal: reports: no symptoms reported. denies: bone pain, back pain, joint pain Integumentary: reports: no symptoms reported Neurological: reports: no symptoms reported. denies: dizziness/vertigo, headache/migraines, loss of balance Psychiatric: reports: no symptoms reported Endocrine: reports: no symptoms reported Hematologic/Lymphatic: reports: no symptoms reported Allergic/Immunologic: reports: no symptoms reported All Other Systems: Reviewed and Negative <Daquan Chang - Last Filed: 07/03/18 06:02> Past History - Adult - PAST MEDICAL HISTORY-ADULT Review of Records: reports: Nursing Assessment Review, Medications Reviewed, Social history reviewed & non-contributory. Major Childhood Illnesses: reports: denies history Cardiovascular: reports: A-Fib, CHF Respiratory: reports: denies history Gastrointestinal: reports: denies history Obstetrical/Gynecological: reports: denies history Genitourinary: reports: denies history Musculoskeletal: reports: denies history Neurological: reports: denies history Endocrine/Immune: reports: Diabetes Other Conditions: reports: denies history - PRIOR SURGERIES/PROCEDURES Surgical/Procedure History: reports: none - IMMUNIZATION STATUS Childhood Immunizations: See Nurse Assessment Flu Vaccine: See Nurse Assessment - FAMILY HISTORY Family History: reviewed, not pertinent - SOCIAL HISTORY Smoking: cigarettes, less than 1 pack/day Provider spent 3-5 mins advising pt. on dangers of tobacco.: Discussed manners to quit use, and f/u contacts for add'l counseling. Substance Use: none/never <Daquan Chang - Last Filed: 07/03/18 06:02> Physical Exam-General - PHYSICAL EXAM-ADULT Initial Vital Signs Reviewed: Yes (tachycardia) - CONSTITUTIONAL General Appearance: appears well, alert, no apparent distress, obese. negative: thin, anxious, lethargic - EYES Eyes: PERRL/EOMI, pink conjunctivae - HEAD, EARS, NOSE, MOUTH & THROAT HENMT: normocephalic/atraumatic, moist mucous membranes, normal ENT inspection - NECK Neck: non-tender, full range of motion, supple, normal inspection - RESPIRATORY Respiratory: chest non-tender, lungs clear, normal breath sounds - CARDIOVASCULAR Cardiovascular: normal peripheral pulses, no edema, no gallop, no JVD, no murmur , tachycardia. negative: JVD, bradycardia, extra beats, friction rub - GASTROINTESTINAL (ABDOMEN) Abdominal Exam: normal bowel sounds, non tender, soft - LYMPHATIC Lymphatic: no adenopathy - MUSCULOSKELETAL Back Exam: normal inspection, no CVA tenderness, no vertebral tenderness Extremity: normal range of motion, non-tender, normal inspection Peripheral Pulses: radial (R): 2+, radial (L): 2+ - SKIN Integumentary: normal color, normal turgor, warm/dry - NEUROLOGIC Neurologic: grossly normal, no motor/sensory deficits - PSYCHIATRIC Psych/Mental Status: normal mood/affect, normal thought content, normal thought process, oriented x 3 <Daquan Chang - Last Filed: 07/03/18 06:02> Progress - PLAN OF CARE/RESULTS Result Diagrams: 06/28/18 17:26 06/28/18 17:26 <Calderon Mclaughlin - Last Filed: 06/28/18 21:01> - PLAN OF CARE/RESULTS Result Diagrams: 07/03/18 05:10 07/03/18 05:10 - EKG 1 Time of EKG reading by physician:: 16:55 (Possible Anterlateral infarct, age undetermined ) EKG Read and Signed by:: Daquan Chang EKG Interpretation (*Must complete 3 of following elements*): Abnormal Rate: 129 (Inferior infarct, age undetermined ) Rhythm: Atrial flutter w/ 2:1 Av Conduction [place]: normal QRS: other (low voltage qrs) - CONSULTS/PCP/HOSPITALIST Notification #1 *Consult/PCP/Hospitalist*: Dr MONROE FOR DR SALAMANCA Time Discussed: 18:44 (CHRONIC A FIB) Reason/Comments: LOOKEDD UP CHART. NKDA.OPACITY/THROMBUS APEX LEFT VENTRICLE PER CT TODAY. #2 Consult: DISCUSSED LOADING DOSES HEPARIN AND DIGOXIN FOR RATE CONTROL WITH PHARMACIS Time Discussed: 18:45 - CHANGE OF SHIFT REPORT (ED Provider) 1 Report Given and Care Transferred to:: Dr. mclaughlin Time of Transfer: 19:32 Items Pending: Labs <Daquan Chang - Last Filed: 07/03/18 06:02> - PLAN OF CARE/RESULTS Progress/Plan/Lab Results: Orders Category Date Time Status Admit - [facility] Routine AdmDCTranf 06/28/18 23:08 Active Activity - Up with Assistance EVERY SHIFT NURSING Care 06/28/18 23:08 Completed DVT/PE Risk Assess/Protocol [QM] ORDERED Care 06/28/18 23:08 Completed FSBS/Accucheck Result AC + HS Care 06/28/18 21:28 Active Intake and Output-Strict Q 8-HR ASSESS Care 06/28/18 23:08 Active Nursing- MD Consult Request ROUTINE Care 06/28/18 23:08 Completed Saline Loc NOW Care 06/28/18 17:32 Completed Vital Signs Order Q 4-HR ASSESS Care 06/28/18 23:08 Completed Z-Document. for Tele Applied ORDERED Care 06/28/18 23:08 Completed Physician/Provider Consults Routine Cons 06/28/18 21:41 Ordered Physician/Provider Consults Routine Cons 06/28/18 23:08 Ordered Diabetic Diet Diet 06/28/18 23:08 Active CHEST-PORTABLE [RAD] Stat Exams 06/28/18 17:34 Completed A1C HGB W EST AVG GLUCOSE [CHEM] Stat Lab 06/28/18 17:26 Completed ACETONE SERUM [CHEM] Stat Lab 06/28/18 17:26 Completed BASIC METABOLIC PANEL [CHEM] DAILY Lab 06/29/18 05:15 Completed BASIC METABOLIC PANEL [CHEM] DAILY Lab 06/30/18 05:18 Completed CBC WITH DIFF [HEME] DAILY Lab 06/29/18 05:15 Completed CBC WITH DIFF [HEME] DAILY Lab 06/30/18 05:18 Completed CBC WITH DIFF [HEME] DAILY Lab 07/01/18 05:20 Completed CBC WITH ELECTRONIC DIFF [HEME] Stat Lab 06/28/18 17:26 Completed COMPREHENSIVE METABOLIC PANEL [CHEM] Stat Lab 06/28/18 17:26 Completed HEPATIC FUNCTION [CHEM] Lab 06/29/18 05:15 Completed HEPATIC FUNCTION [CHEM] Lab 06/30/18 05:18 Completed HEPATITIS PROFILE [HH] Routine Lab 06/29/18 05:15 Completed LACTATE, PLASMA [CHEM] Stat Lab 06/28/18 18:07 Completed MAGNESIUM [CHEM] Stat Lab 06/28/18 17:26 Completed PRO B-NATRIURETIC PEPTIDE Stat Lab 06/28/18 17:26 Completed PROTIME WITH INR [COAG] Stat Lab 06/28/18 17:26 Completed PTT [COAG] Stat Lab 06/28/18 17:26 Completed TROPONIN T Q6H Lab 06/28/18 23:25 Completed TROPONIN T Q6H Lab 06/29/18 05:15 Completed TROPONIN T Q6H Lab 06/29/18 11:55 Completed TROPONIN T Stat Lab 06/28/18 17:26 Completed TSH Stat Lab 06/28/18 17:26 Completed URINALYSIS W/POSS RFLX CULT [URINALYSIS] Stat Lab 06/28/18 22:50 Completed 0.9% Sodium Chloride Inj [Ns] 1,000 ml Med 06/28/18 23:08 Discontinued IV 75 mls/hr 0.9% Sodium Chloride Inj [Ns] 100 ml Med 06/28/18 22:00 Discontinued Diltiazem [Cardizem] 125 mg IV As Directed mls/hr Acetaminophen [Tylenol] Med 06/28/18 23:08 Active 650 mg PO Q6H PRN PRN Digoxin [Lanoxin] Med 06/28/18 18:48 Discontinued 500 microgm IV NOW ONE Diltiazem [Cardizem] Med 06/28/18 21:32 Discontinued 10 mg IV NOW ONE Heparin Med 06/28/18 18:46 Discontinued 6,000 unit IV NOW ONE Heparin 25,000 Units/D5w Med 06/28/18 19:00 Discontinued 25,000 unit in 250 ml IV 12 unit/kg/hr Insulin Lispro [Humalog] Med 06/29/18 07:00 Active See Protocol SUBQ 0700,1100,1600,2100 Omeprazole [Prilosec] Med 06/29/18 07:00 Active 40 mg PO DAILY@0700 Ondansetron [Zofran] Med 06/28/18 21:28 Active 4 mg IV Q4H PRN PRN Sodium Polystyrene [Kayexalate] Med 06/28/18 21:41 Discontinued 30 gm PO NOW ONE Telemetry [OM.EQ] Routine Oth 06/28/18 23:08 Active ECHO COMPL W/Contrast Definity Routine Ther 06/28/18 21:28 Completed EKG [EKG] Stat Ther 06/28/18 17:33 Draft EKG [EKG] Stat Ther 06/29/18 06:00 Completed Transfer/Admit Order [TRANSFER] Routine Transfer 06/28/18 21:19 Completed Departure - Departure Date of Disposition Decision: 06/28/18 Time of Disposition Decision: 21:01 Certified Medical Emergency: Emergent - Critical Care Note This patient required my direct & personal management of CC.: No <Calderon Mclaughlin - Last Filed: 06/28/18 21:01> <Daquan Chang - Last Filed: 07/03/18 06:02> - Departure DIAGNOSIS: Left ventricular thrombosis, Atrial fibrillation with RVR Disposition: ADMITTED INPATIENT 09 Condition: Fair Attestation - Physician/ NGOZI Attestation Patient care was provided by Advanced Practice Provider:: No The physician spent face to face time with patient:: Yes Advanced Practice Provider documentation review:: Supervising physician onsite and consulted in the evaluation and care of this patient. The physician did have a face to face encounter with the patient. <Calderon Mclaughlin - Last Filed: 06/28/18 21:01> - Physician/ NGOZI Attestation Patient care was provided by Advanced Practice Provider:: No The physician spent face to face time with patient:: Yes Advanced Practice Provider documentation review:: Supervising physician onsite and consulted in the evaluation and care of this patient. The physician did have a face to face encounter with the patient. <Daquan Chang - Last Filed: 07/03/18 06:02> This chart was documented by the indicated scribe, (Soheila Denny, Mi) and accurately reflects the services I performed and decisions made by me, Daquan Chang MD, as attested by the provider's signature.
[2018-07-03] MEDS: COREG PO SCH (09:20)
[2018-07-03] MEDS: LASIX IV SCH (09:20)
[2018-07-03] MEDS: COZAAR PO SCH (09:20)
[2018-07-03] MEDS: ELIQUIS PO SCH (09:20)
[2018-07-03] MEDS: THERA M PLUS PO SCH (09:20)
[2018-07-03] MEDS: LANOXIN PO SCH (09:20)
[2018-07-03] MEDS: NICODERM PATCH TD SCH (09:21)
--- NOTE | 2018-07-03 09:37 | Diag Imaging Result Doc PS360 ---
EXAM: CHEST-PORTABLE 07/03/2018 HISTORY: dyspnea TECHNIQUE: AP portable at 0911 COMMENT: There is cardiomegaly. The inspiration is somewhat suboptimal. Considering the degree of inspiration and differences in technique there has been no significant change since 07/01/2018. IMPRESSION: Cardiomegaly. Electronically signed by Rah Dawson 07/03/2018 9:34 AM
[2018-07-03 11:13] VITALS: BP 112/93
--- NOTE | 2018-07-06 07:01 | DISCHARGE SUMMARY ---
ADMISSION DATE: 06/28/2018 DISCHARGE DATE: 07/03/2018 PRINCIPAL DIAGNOSIS: Left ventricular apex thrombosis. SECONDARY DIAGNOSES: 1. Atrial fibrillation/atrial flutter with rapid ventricular rate. 2. Severe dilated cardiomyopathy with ejection fraction of about 15 to 20%. Fluid overload. 3. Transaminitis. 4. History of acute leukemia. 5. Diabetes mellitus. 6. Altered mental status. CONSULTATIONS DONE DURING HOSPITAL STAY: Dr. Rodrigo Ugarte MD Cardiology PROCEDURES DONE DURING HOSPITAL STAY: 1. Echocardiogram done on 06/28/2018. 2. Head CT 06/29/2018. HOSPITAL COURSE: Mr. Sudeep Valverde was admitted to the hospital because of possible left ventricular thrombus. He was started on heparin drip. He was also noted to be in atrial fibrillation with rapid ventricular rate and required a Cardizem infusion. The patient was seen by the Cardiology team. He was receiving care in the cardiac intensive care unit. The patient decided to leave the hospital against medical advice. cc: Medardo Darling MD
== END 2018-07-03 12:55 | disposition left against medical advice (07) | DRG 311 ==
LOC: SUPCPDRO → ED 16:49 → 3S 22:22 → SUATTDRO 22:22 → 3S 06-29 21:52
PROVIDERS: ATTEND Internal Medicine
CPT/HCPCS: 70450; 71010; 71045; 80048; 80053; 80074; 80076; 80101; 80301; 80307; 80324; 80345; 80346; 80353; 80358; 80361; 80365; 81001; 82009; 82248; 82805; 82948; 83036; 83605; 83735; 83880; 83992; 84443; 84484; 85025; 85610; 85730; 93005; 93010; 93306; 93970; 94640; 94761; 96365; 96366; 96368; 96375; 99285; A9270; C8929; G0431; G0434; G0479; G0480; J1160; J1644; J1815; J1940; J3411; J3475; J7030; Q9957; XXXXX